=== PATIENT | female | born 1995 | race Caucasian/White ===

== ENCOUNTER 2024-01-27 19:47 | Emergency (ER) | payer OTHER ==
[~2024-01-27] VITALS: Ht 170.2 cm; Wt 59.0 kg
[2024-01-27 20:40] VITALS: BP 129/70; TEMP 98.2; O2SAT 98
[2024-01-27] MEDS ORDERED: AMOX875T2 PO (21:17)
== END 2024-01-27 21:27 | disposition home or self-care (01) ==
LOC: ER 19:50
DX: H66.92 Otitis media, unspecified, left ear (principal); Z79.899 Other long term (current) drug therapy; Z60.2 Problems related to living alone